=== PATIENT | male | born 1995 | race Caucasian/White ===

== ENCOUNTER 2020-03-22 15:04 | Emergency (ER) | payer BC, SELFPAY ==
[~2020-03-22] VITALS: Ht 172.7 cm; Wt 94.3 kg
[2020-03-22 15:05] VITALS: BP 126/111
--- NOTE | 2020-03-22 15:17 | NUR ---
PT AMB TO BED 12.
--- NOTE | 2020-03-22 15:53 | NUR ---
24 Y/O MALE PRESENTS WITH BILAT LOWER BACK PAIN X1 MONTH AGO AND LOWER ABD PAIN/BLOATED THAT BEGAN ONE WEEK AGO. PT DENIES ANY RECENT TRAUMA OR INJURY. PT STATES WHEN HE URINATES, HE CONTINUES TO FEEL THE URGE TO GO. DENIES ANY PAIN WITH URINATION. ABD IS SOFT/ NON TENDER/ NON DISTENDED. NO MASSES FELT. RESP EVEN AND UNLABORED. LUNG SOUNDS CLEAR IN BILAT LOBES. NO PMH NKA
[2020-03-22 16:33] LABS: APPEARANCE,URINE CLEAR (CLEAR); BILIRUBIN,URINE NEGATIVE (NEGATIVE); BLOOD, URINE NEGATIVE (NEGATIVE); COLOR,URINE YELLOW (YELLOW); LEUKOCYTE ESTERASE ,URINE NEGATIVE (NEGATIVE); NITRITE, URINE NEGATIVE (NEGATIVE); PH,URINE 6.5 (5.0-9.0); UGLUCOSE NEGATIVE (NEGATIVE)
--- NOTE | 2020-03-22 16:49 | NUR ---
Nicole centeno in [facility] - 03/22/20 at 1653 by TOÑO PT MOVED TO BED 9 FOR COVID PRECAUTIONS
[2020-03-22 17:14] VITALS: BP 126/111
--- NOTE | 2020-03-22 17:14 | NUR ---
Patient discharged with v/s stable. Written and verbal after care instructions given and explained. Patient alert, oriented and verbalized understanding of instructions. Ambulatory with steady gait. All questions addressed prior to discharge. ID band removed. Patient advised to follow up with PMD. Rx of MOTRIN, MINERAL OIL, MIRALAX given. Patient educated on indication of medication including possible reaction and side effects. Opportunity to ask questions provided and answered.
== END 2020-03-22 17:14 | disposition home or self-care (01) ==
LOC: EEVIPCON 15:04 → MED 15:04
DX: K59.00 Constipation, unspecified (principal); N23 Unspecified renal colic
CPT/HCPCS: 71045; 74021; 81003; 99284; Q0092

== ENCOUNTER 2023-11-13 11:10 | Emergency (ER) | payer SELFPAY ==
[~2023-11-13] VITALS: Ht 167.6 cm; Wt 72.6 kg
[2023-11-13 11:34] VITALS: BP 122/78; PULSE 115; RESP 18; TEMP 97; O2SAT 98
[2023-11-13] MEDS ORDERED: NACL 0.9% 1,000 ML IV ONE (11:50)
[2023-11-13 12:19] LABS: BASOPHILS % (AUTO) 0.4 % (0.0-2.0); EOSINOPHILS # (AUTO) 0.1 K/uL (0-0.4); EOSINOPHILS % (AUTO) 0.8 % (0.0-4.0); HEMATOCRIT 50.8 % (36-52); HEMOGLOBIN 17.3 g/dL (12.0-18.0); LYMPHOCYTES # (AUTO) 1.1 K/uL (2.0-11.5); LYMPHOCYTES % (AUTO) 12.8 % (20.5-51.1); MEAN CORPUSCULAR HEMOGLOBIN 30 pg (27-31); MEAN CORPUSCULAR HGB CONC 34 g/dL (33-37); MEAN CORPUSCULAR VOLUME 88.7 fL (80-94); MONOCYTES # (AUTO) 0.6 K/uL (0.8-1.0); MONOCYTES % (AUTO) 6.9 % (1.7-9.3); NEUTROPHILS # (AUTO) 6.7 K/uL (1.8-7.7); NEUTROPHILS % (AUTO) 79.1 % (42.2-75.2); PLATELET COUNT (AUTO) 333 K/uL (140-450); RED BLOOD CELL COUNT(AUTO) 5.73 MIL/uL (4.20-6.10); WHITE BLOOD COUNT (AUTO) 8.4 K/uL (4.8-10.8)
[2023-11-13] MEDS ORDERED: ONDANSETRON 4 MG/2 ML VIAL IVP ONE (12:30)
[2023-11-13] MEDS ORDERED: CIPR500T4 PO (12:44)
[2023-11-13] MEDS ORDERED: LOPE-289 PO (12:44)
[2023-11-13] MEDS ORDERED: ONDA8TAB87 PO (12:44)
[2023-11-13 12:46] LABS: CARBON DIOXIDE 29.9 mmol/L (21-32); POTASSIUM 3.9 mmol/L (3.5-5.1)
[2023-11-13 13:22] VITALS: BP 115/77; PULSE 91; RESP 14; TEMP 97; O2SAT 98
== END 2023-11-13 13:22 | disposition home or self-care (01) ==
LOC: MED 11:10
DX: R11.2 Nausea with vomiting, unspecified (principal); R19.7 Diarrhea, unspecified; Z79.899 Other long term (current) drug therapy
CPT/HCPCS: 36415; 80048; 85025; 96361; 96374; 99283; J2405; J7030